=== PATIENT | female | born 1980 | race Caucasian/White ===

== ENCOUNTER 2024-06-18 06:40 | Day surgery (SDC) | payer BC, SELFPAY ==
[2024-06-17 10:50] LABS: HCG Qualitative,Urine Negative
[2024-06-18] VITALS (9 sets, daily range): BP systolic 118–145; BP diastolic 74–101; PULSE 71–94; RESP 17–22; TEMP 36.3–37.1; O2SAT 98–100; BMI 25.1
[2024-06-18] MEDS: ONDANSETRON INJ 2 MG/ML INJ 2 ML 4 MG IV (07:27)
[2024-06-18] MEDS: DiphenhydrAMINE INJ 50 MG/ML VIAL 25 MG IV (07:27)
[2024-06-18] MEDS: LIDOCAINE JELLY 2% (Urojet) 10 ML TUBE TOP (07:29)
[2024-06-18] MEDS: MIDAZOLAM INJ 1 MG/ML VIAL 2 ML (ASD USE ONLY) 2 MG IV (07:31)
[2024-06-18] MEDS: fentaNYL CIT INJ 50 mCg/ML AMP 2ML (ASD USE ONLY) IV (07:33)
[2024-06-18] MEDS: SIMETHICONE 40 MG/0.6 ML ORAL SYRINGE PO (07:33)
== END 2024-06-18 08:23 | disposition home or self-care (01) ==
PROVIDERS: PCP Family Medicine; Referring Provider Surgery; Visit Provider Surgery
PROC: 0DBE8ZX Excision of Large Intestine, Via Natural or Artificial Opening Endoscopic, Diagnostic (ICD-10-PCS; CPT 45380; principal; 2024-06-18 07:30)
DX: K64.1 Second degree hemorrhoids (principal); K57.31 Diverticulosis of large intestine without perforation or abscess with bleeding
CPT/HCPCS: 45378; 81025; J1200; J2250; J2405; J3010; A9270

== ENCOUNTER → 2024-10-15 | Outpatient (CLI) | payer BC, SELFPAY ==
[2024-10-15 17:17] LABS: Collection Type, Urine Clean Catch
[2024-10-15 17:33] LABS: Basophils % (Auto) 0 % (0-2.5); Eosinophils # (Auto) 0.2 Thou/mm3 (0.0-0.5); Eosinophils % (Auto) 3 % (0-10); Hemoglobin 11.6 g/dL (12.0-16.0); Immature Granulocytes % (Auto) 1 % (0-0); Immature Granulocytes Auto 0.04 Thou/mm3 (0.00-0.00); Lymphocytes # (Auto) 1.4 Thou/mm3 (1.0-4.8); Lymphocytes % (Auto) 26 % (10-50); Mean Corpuscular HGB Conc 34.1 g/dl (31.0-37.0); Mean Corpuscular Hemoglobin 28.6 pg (25.0-35.0); Mean Corpuscular Volume 84 fL (80-100); Monocytes # (Auto) 0.5 Thou/mm3 (0.0-0.8); Monocytes % (Auto) 10 % (0-12); Neutrophils # (Auto) 3.1 Thou/mm3 (1.8-7.7); Neutrophils % (Auto) 59 % (37-80); Nucleated Red Blood Cell % 0 /100 WBC (0); Platelet Count 217 Thou/mm3 (140-440); RDW Standard Deviation 38.4 fL (36.4-46.3); Red Blood Count 4.05 Miln/mm3 (4.00-5.20); White Blood Count 5.2 Thou/mm3 (3.6-11.0)
[2024-10-15 17:47] LABS: Bilirubin,Urine Negative (Negative); Blood,Urine Negative (Negative); Clarity,Urine Clear (Clear/Hazy); Color,Urine Lt-Yellow (Lt Yel-Yel); Culture Indicated,Urine Not Indicated; Glucose, Urine Negative (Negative); Ketones,Urine Negative (Negative); Leukocyte Esterase,Urine Negative (Negative); Nitrite,Urine Negative (Negative); PH,Urine 6.5 (5.0-7.0); Protein,Urine Negative (Neg - Trace); RBC,Urine 1 /hpf (0-3); Specific Gravity,Urine 1.021 (1.001-1.035); Squamous Epithelial Cell,Urine 3 /hpf (0-5); Urobilinogen,Urine Negative mg/dL (0.0-1.0); WBC,Urine 1 /hpf (0-5)
[2024-10-15 18:00] LABS: Alanine Aminotransferase 276 U/L (10-49); Albumin, Serum 3.9 gm/dL (3.5-5.0); Albumin/Globulin Ratio 1.9 (1.2-2.2); Alkaline Phosphatase 109 U/L (46-116); Anion Gap 6 (7-16); Aspartate Amino Transferase 112 U/L (0-34); BUN/Creatinine Ratio 14 Ratio (12-20); Bilirubin,Total 0.5 mg/dL (0.3-1.2); Blood Urea Nitrogen 13 mg/dL (9-23); C-Reactive Protein 0.7 mg/dL (0.0-0.9); Calcium 8.4 mg/dL (8.3-10.6); Calcium (Corrected) 8.5 mg/dL (8.5-10.1); Carbon Dioxide 26.8 mMol/L (20.0-31.0); Chloride 107 mMol/L (98-107); Creatinine (Component) 0.9 mg/dL (0.6-1.3); Globulin 2.1 gm/dL (2.3-3.5); Glucose 90 mg/dL (74-106); Iron 73 mcg/dL (50-170); Osmolality,Calculated 279 (275-295); Percent Iron Saturation 22 % (20-55); Potassium 3.6 mMol/L (3.4-5.1); Sodium 140 mMol/L (136-145); Total Iron Binding Capacity 320 mcg/dL (250-425); Unsaturated Iron Binding 247 (225-295); eGFR > 60 See Note
[2024-10-15 18:02] LABS: Vitamin B12 1269 pg/mL (211-911); Vitamin D 25 Hydroxy Total 30.4 ng/mL (7.3-40.2)
[2024-10-16 12:42] LABS: Cocci Serology, IgM Negative (Negative)
[2024-10-18 12:33] LABS: Cocci Serology, IgG Negative (Negative)
[2024-10-23 06:47] LABS: ANA Screen, IFA POSITIVE (NEGATIVE)
== END | disposition home or self-care (01) ==
LOC: COPL 16:12
PROVIDERS: PCP Registered Nurse; Referring Provider Registered Nurse; Visit Provider Registered Nurse
DX: J06.9 Acute upper respiratory infection, unspecified (principal); R50.9 Fever, unspecified; M79.18 Myalgia, other site
CPT/HCPCS: 36415; 80053; 81001; 82306; 82607; 83540; 83550; 85025; 86038; 86140; 86331; 86635

== ENCOUNTER → 2025-05-05 | Outpatient (CLI) | payer BC, SELFPAY ==
--- NOTE | 2025-05-05 14:00 | XR_ITS ---
Examination: Breast ultrasound complete, bilateral Date and time of exam: May 05, 2025, 1357 hours INDICATIONS: Palpable lump right breast 2 o'clock position and left breast outer left breast 1 month, tender to touch, family history breast cancer Technique: Real-time grayscale ultrasonographic imaging bilateral breasts, including all 4 quadrants as well as nipple retroareolar and axillary regions. Findings: Sonographic images right breast 12:00 glandular tissue versus nodule 3.9 x 4.5 x 1.7 cm Sonographic images left breast No cystic or solid mass IMPRESSION: BI-RADS Category 3: Probably benign findings Recommend 1 additional 6-month right breast sonogram follow-up to document stability of 12:00 glandular tissue versus nodule
--- NOTE | 2025-05-05 15:00 | XR_ITS ---
Examination: Diagnostic digital mammography, unilateral, right Computer aided detection 3-D breast Tomosynthesis, unilateral Date and time of exam: May 05, 2025, 1444 hours INDICATIONS: Mammogram April 17, 2024 14 mm focal asymmetry lower outer right breast, 6 mm focal asymmetry 12 o'clock position right breast posterior depth Technique: Nonmagnified MLO, CC views of the right breast have been obtained, reconstructed from 3-D Tomosynthesis images. R2 computer aided detection program utilized for evaluation of suspicious masses and/or abnormal calcifications. 3-D Tomosynthesis images obtained. Findings: The breast is heterogeneously dense, which may obscure small masses Focal asymmetry remains 14 mm right breast MLO view below the nipple Impression: BI-RADS category 3: Probably benign findings 1 additional 6-month right mammogram follow-up is needed
== END | disposition home or self-care (01) ==
LOC: CDIM 13:34
PROVIDERS: PCP Family Medicine; Referring Provider Registered Nurse; Visit Provider Registered Nurse
DX: R92.331 Mammographic heterogeneous density, right breast (principal); R92.8 Other abnormal and inconclusive findings on diagnostic imaging of breast
CPT/HCPCS: 76641; 77061; 77065; G0279